=== PATIENT | female | born 1995 | race Caucasian/White ===

== ENCOUNTER 2017-02-22 22:15 | Observation (INO) | payer OTHER ==
[2017-02-22 22:34] VITALS: BP 115/69; PULSE 92
== END 2017-02-22 23:30 | disposition home or self-care (01) ==
LOC: UNDOADMOB 22:15 → OB 22:15 → UNDODISOB 23:30
PROVIDERS: ADMIT Family Medicine; ATTEND Family Medicine
DX: Z34.03 Encounter for supervision of normal first pregnancy, third trimester (principal)
CPT/HCPCS: 80307; G0378

== ENCOUNTER 2017-04-03 21:52 | Observation (INO) | payer OTHER ==
[2017-04-03 23:02] LABS: Bilirubin NEGATIVE (NEGATIVE); Blood NEGATIVE Ery/ul (0-5); COMPLETE URINE MICROSCOPIC? NO; Collection Type CCMS; Glucose NEGATIVE (NEGATIVE); Leukocyte Esterase NEGATIVE (NEGATIVE)
[2017-04-04 01:26] VITALS: BP 116/77; PULSE 94
== END 2017-04-04 00:35 | disposition home or self-care (01) ==
LOC: OB 21:52 → UNDOADMOB 21:52 → OB 22:15 → UNDODISOB 04-04 00:35
PROVIDERS: ADMIT Family Medicine; ATTEND Family Medicine
DX: Z34.83 Encounter for supervision of other normal pregnancy, third trimester (principal)
CPT/HCPCS: 80307; 81002; G0378

== ENCOUNTER 2017-04-07 02:48 | Inpatient (IN) | payer OTHER ==
[2017-04-07] MEDS ORDERED: Phenergan 25 MG INJ IV PRN (08:47)
[2017-04-07] MEDS ORDERED: Ephedrine Sulfate 50 MG/ML IV PRN (08:47)
[2017-04-07] MEDS ORDERED: XYLOCAINE 1% HCL 20 ML MDV IJ PRN (08:47)
[2017-04-07] MEDS ORDERED: Lactated Ringers 1,000 ML IV ONE (08:47)
[2017-04-07] MEDS ORDERED: Zofran 4 MG/2 ML VIAL IV PRN (08:47)
[2017-04-07] MEDS ORDERED: PITOCIN 30 UNITS/ LR 500 ML 500 ML IV SCH (09:00)
[2017-04-07 09:14] LABS: BASOPHIL % 0.1 % (0.0-0.4); Eosinophil % 0.4 % (0.00-5.0); Granulocytes % 79.5 % (36.0-66.0); Lymphocytes % 13.8 % (24.0-44.0); Mean Corpuscular Hemoglobin 30.3 pg (26-32); Mean Platelet Volume 10.2 fl (6-9.5); Monocytes % 6.2 % (0.0-12.0); Platelet Count 244 K/mm3 (150-450); Red Blood Count 3.53 M/mm3 (4.1-5.4); Red Cell Distribution Width 12.8 % (11.5-14.0); White Blood Count 16.8 K/mm3 (4.0-10.5)
[2017-04-07] MEDS: OB EPIDURAL NAROPIN/SUFENTANIL IN NACL EPIDURAL PRN ×2 (10:00→17:25)
[2017-04-07] MEDS ORDERED: Lactated Ringers 1,000 ML IV SCH (10:30)
[2017-04-07] MEDS ORDERED: TYLENOL EXTRA STRENGTH 500 MG PO PRN (19:29)
[2017-04-07] MEDS ORDERED: Dermoplast Spray TP PRN (19:29)
[2017-04-07] MEDS ORDERED: NORCO 5/325 MG PO PRN (19:29)
[2017-04-07] MEDS ORDERED: Restoril 15 MG PO PRN (19:29)
[2017-04-07] MEDS ORDERED: LANSINOH 40 GM TOP PRN (19:29)
[2017-04-07] MEDS ORDERED: Ambien 10 MG PO PRN (19:29)
[2017-04-07] MEDS ORDERED: Rhogam Plus 300 MCG IM ONE (19:29)
[2017-04-07] MEDS: TUCKS TP PRN (20:45)
[2017-04-07] MEDS: MOTRIN 400 MG PO PRN (23:05)
[2017-04-08 05:34] LABS: Mean Cell Volume 90.3 fl (78-100); Mean Corpuscular Hemoglobin 30.3 pg (26-32); Mean Platelet Volume 10.3 fl (6-9.5); Platelet Count 235 K/mm3 (150-450); Red Blood Count 2.67 M/mm3 (4.1-5.4); Red Cell Distribution Width 12.6 % (11.5-14.0); White Blood Count 20.1 K/mm3 (4.0-10.5)
[2017-04-08] MEDS: MOTRIN 400 MG PO PRN ×2 (07:54→20:06)
[2017-04-08] MEDS ORDERED: Adacel Vial IM ONE (09:00)
[2017-04-08] MEDS: FERREX 150 PO SCH (10:43)
[2017-04-08] MEDS: Colace 100 MG PO SCH ×3 (10:43→21:52)
[2017-04-08 11:20] LABS: Total Cells Counted 100
[2017-04-08 11:21] LABS: ANISOCYTOSIS 1+; Platelet Estimate NORMAL (NORMAL); Poikilocytosis 1+
[2017-04-08] MEDS: TUCKS TP PRN (20:13)
[2017-04-09 05:35] LABS: Mean Cell Volume 91.9 fl (78-100); Mean Platelet Volume 9.8 fl (6-9.5); Platelet Count 259 K/mm3 (150-450); Red Blood Count 2.85 M/mm3 (4.1-5.4); White Blood Count 14.8 K/mm3 (4.0-10.5)
[2017-04-09 06:27] LABS: Mean Corpuscular Hemoglobin 30.1 pg (26-32)
[2017-04-09 07:18] LABS: Eosinophil 2 % (0.00-3.0); Platelet Estimate NORMAL (NORMAL); Total Cells Counted 100; Toxic Granulation 1+
[2017-04-09] MEDS: MOTRIN 400 MG PO PRN (09:03)
[2017-04-09] MEDS: Colace 100 MG PO SCH (09:03)
[2017-04-09] MEDS: FERREX 150 PO SCH (09:03)
--- NOTE | 2017-04-09 10:14 | PCM.DS ---
Discharge Summary Date of Admission: 04/07/17 08:41 Admitting Physician: HENRY SANTOS Consults: Consults on Case 04/07/17 08:48 Notify Anesthesia Provider Primary Care Provider: HENRY SANTOS Allergies Allergies No Known Drug Allergies Allergy (Verified 04/03/17 22:30) Hospital Summary - Hospital Course Hospital Course: admitted in spont labor at term, no problems with delivery. , normal course. her daughter and is well bonded. - Vitals & Intake/Output Vital Signs: Vital Signs Temperature 98.1 F 04/09/17 08:00 Pulse Rate 87 04/09/17 08:00 Respiratory Rate 18 04/09/17 08:00 Blood Pressure 111/65 04/09/17 08:00 O2 Sat by Pulse Oximetry Intake & Output: Intake & Output 04/06/17 04/07/17 04/08/17 04/09/17 11:59 11:59 11:59 11:59 Intake Total 5000 Output Total 900 Balance 4100 Weight 77.564 kg - Lab Result Diagrams: 04/09/17 05:32 Lab Results-Last 24 Hrs: Lab Results-Last 24 Hours 04/08/17 04/09/17 Range/Units 05:10 05:32 WBC 14.8 H (4.0-10.5) K/mm3 RBC 2.85 L (4.1-5.4) M/mm3 Hgb 8.6 L (12.0-16.0) gm/dl Hct 26.2 L (35-47) % MCV 91.9 (78-100) fl MCH 30.1 (26-32) pg MCHC 32.8 (32-36) g/dl RDW 13.0 (11.5-14.0) % Plt Count 259 (150-450) K/mm3 MPV 9.8 H (6-9.5) fl Segmented Neutrophils 76 H 73 H (36.0-66.0) % Lymphocytes (Manual) 24 23 L (24-44) % Monocytes (Manual) 2 (0.0-12.0) % Eosinophils (Manual) 2 (0.00-3.0) % Differential Comment ABNORMAL NORMAL Toxic Granulation 1+ Platelet Estimate NORMAL NORMAL (NORMAL) Poikilocytosis 1+ Anisocytosis 1+ Micro Results-Entire Visit: Microbiology 04/07/17 15:38 - Final Urine, Indwelling Catheter NO GROWTH Discharge Exam General Appearance: no apparent distress, alert Respiratory Exam: normal breath sounds, lungs clear, No respiratory distress Cardiovascular Exam: regular rate/rhythm, normal heart sounds Gastrointestinal/Abdomen Exam: soft, No tenderness, No mass Extremity Exam: normal inspection, normal range of motion Final Diagnosis/Problem List - Final Discharge Diagnosis/Problem (1) Vaginal delivery Current Visit: Yes Status: Acute (2) (infant) Current Visit: Yes Status: Acute - Discharge Disposition: Home, Self-Care Condition: Stable Prescriptions: New Iron Polysaccharides Complex [Ferrex 150] 150 mg PO DAILY capsule Continue Vits W-Ca,Fe,FA(<1Mg) [] 1 tab PO DAILY Follow up with: HENRY SANTOS MD [Primary Care Provider] - 1 Week
[2017-04-09 22:59] VITALS: BP 119/72; PULSE 115
== END 2017-04-09 20:15 | disposition home or self-care (01) | DRG 775 ==
LOC: OB 02:48 → OBSVTOIN 08:41 → OB 08:41
PROVIDERS: ADMIT Family Medicine; ATTEND Family Medicine
PROC: 10E0XZZ Delivery of Products of Conception, External Approach (ICD-10-PCS; principal; 2017-04-07)
DX: O80 Encounter for full-term uncomplicated delivery (principal); Z3A.39 39 weeks gestation of pregnancy; Z37.0 Single live birth
CPT/HCPCS: 01967; 36415; 80307; 81002; 85025; 87086; 90715; G0378; J2405; J2590; J2795; A9270-GY

== ENCOUNTER 2024-02-14 22:02 | Observation (INO) | payer OTHER ==
[2024-02-14 22:26] VITALS: BP 125/78; TEMP 98.2; O2SAT 97
[2024-02-14 22:37] LABS: Appearance Cloudy (Clear); Bacteria Rare /HPF (None Seen); Bilirubin Negative (Negative); Blood Negative (Negative); Epithelial Cells Moderate /HPF (None Seen); Glucose, Urine Negative (Negative); Hyaline Casts NONE SEEN /LPF (0-2); Ketones Negative (Negative); Leukocyte Esterase Negative (Negative); Nitrite Negative (Negative); Ph 6.5 (4.6-8.0); Protein,Urine Dip Trace (Negative); RBC 0-2 /HPF (0-5)
[2024-02-14 22:40] LABS: AMNISURE TEST RESULTS NEGATIVE (NEGATIVE)
[2024-02-14 22:41] LABS: ADD URINE CULTURE? YES (NO)
[2024-02-14 22:42] VITALS: PULSE 108; RESP 17
[2024-02-14 22:49] LABS: Amphetamine,Urine NEGATIVE (NEGATIVE); Barbiturate,Urine NEGATIVE (NEGATIVE); Benzodiazepine,Urine NEGATIVE (NEGATIVE); Cocaine,Urine NEGATIVE (NEGATIVE); Methadone,Urine NEGATIVE (NEGATIVE); Opiate,Urine NEGATIVE (NEGATIVE); PCP,Urine NEGATIVE (NEGATIVE); THC,Urine NEGATIVE (NEGATIVE)
== END 2024-02-14 23:26 | disposition home or self-care (01) ==
LOC: OB 22:02
PROVIDERS: ADMIT Obstetrics & Gynecology; ATTEND Obstetrics & Gynecology
DX: Z34.83 Encounter for supervision of other normal pregnancy, third trimester (principal); Z3A.36 36 weeks gestation of pregnancy
CPT/HCPCS: 80307; 81001; 84112; 87086; G0378; G0379

== ENCOUNTER 2024-02-29 14:13 | Observation (INO) | payer OTHER ==
[2024-02-29 14:52] VITALS: BP 122/68; PULSE 123; RESP 18; TEMP 97.6
[2024-02-29 15:06] LABS: Appearance Clear (Clear); Bacteria None Seen /HPF (None Seen); Bilirubin Negative (Negative); Blood Negative (Negative); Epithelial Cells Few /HPF (None Seen); Glucose, Urine Negative (Negative); Hyaline Casts NONE SEEN /LPF (0-2); Ketones Negative (Negative); Leukocyte Esterase Trace (Negative); Nitrite Negative (Negative); Ph 6.5 (4.6-8.0); Protein,Urine Dip Trace (Negative); RBC 0-2 /HPF (0-5); Specific Gravity 1.015 (1.005-1.030)
[2024-02-29 15:09] LABS: ADD URINE CULTURE? NO (NO)
[2024-02-29 15:17] LABS: Amphetamine,Urine NEGATIVE (NEGATIVE); Barbiturate,Urine NEGATIVE (NEGATIVE); Benzodiazepine,Urine NEGATIVE (NEGATIVE); Cocaine,Urine NEGATIVE (NEGATIVE); Methadone,Urine NEGATIVE (NEGATIVE); Opiate,Urine NEGATIVE (NEGATIVE); PCP,Urine NEGATIVE (NEGATIVE); THC,Urine NEGATIVE (NEGATIVE)
== END 2024-02-29 16:10 | disposition home or self-care (01) ==
LOC: OB 14:13
PROVIDERS: ADMIT Family Medicine; ATTEND Family Medicine
DX: Z34.83 Encounter for supervision of other normal pregnancy, third trimester (principal); Z3A.39 39 weeks gestation of pregnancy
CPT/HCPCS: 80307; 81001; G0378; G0379

== ENCOUNTER 2024-03-04 04:29 | Inpatient (IN) | payer OTHER ==
[2024-03-04 05:06] LABS: Absolute Neutrophil Ct (ANC) 5.63 x10^3/uL (1.56-6.13); BASOPHIL % 0.1 % (0.1-1.2); Basophil (Absolute #) 0.01 x10^3/uL (0.01-0.08); Eosinophil % 1.4 % (0.7-5.8); Eosinophil (Absolute #) 0.13 x10^3/uL (0.04-0.36); Hematocrit 33.7 % (34.1-44.9); Hemoglobin 11.6 g/dL (11.2-15.7); IMMATURE GRAN # 0.06 x10^3u/L (0.001-0.031); IMMATURE GRAN % 0.7 % (0.001-0.429); Lymphocyte (Absolute #) 2.71 x10^3/uL (1.18-3.74); Lymphocytes % 29.7 % (19.3-51.7); Mean Corpuscular Hemoglobin 29.6 pg (25.6-32.2); Mean Corpuscular Hgb Concent. 34.4 g/dL (32.2-35.5); Mean Platelet Volume 10.2 fL (9.4-12.3); Monocyte (Absolute #) 0.59 x10^3/uL (0.24-0.86); Monocytes % 6.5 % (4.7-12.5); Neutrophil % 61.6 % (34.0-71.1); Platelet Count 241 x10^3/uL (182-369); Red Blood Count 3.92 x10^6/uL (3.93-5.22); White Blood Count 9.1 x10^3/uL (3.98-10.04)
[2024-03-04] MEDS ORDERED: Ephedrine Sulfate 50 MG/ML IV PRN (05:09)
[2024-03-04] MEDS: Lactated Ringers 1,000 ML IV ONE (05:10)
[2024-03-04 05:13] LABS: Appearance Clear (Clear); Bacteria None Seen /HPF (None Seen); Bilirubin Negative (Negative); Blood Negative (Negative); Epithelial Cells Rare /HPF (None Seen); Glucose, Urine Negative (Negative); Hyaline Casts NONE SEEN /LPF (0-2); Ketones Negative (Negative); Leukocyte Esterase Negative (Negative); Nitrite Negative (Negative); Protein,Urine Dip Negative (Negative); RBC 0-2 /HPF (0-5); Specific Gravity 1.015 (1.005-1.030); Urobilinogen 0.2 mg/dL (0.2)
[2024-03-04 05:16] LABS: ADD URINE CULTURE? NO (NO)
[2024-03-04 05:23] LABS: Amphetamine,Urine NEGATIVE (NEGATIVE); Barbiturate,Urine NEGATIVE (NEGATIVE); Benzodiazepine,Urine NEGATIVE (NEGATIVE); Cocaine,Urine NEGATIVE (NEGATIVE); Methadone,Urine NEGATIVE (NEGATIVE); Opiate,Urine NEGATIVE (NEGATIVE); PCP,Urine NEGATIVE (NEGATIVE); THC,Urine NEGATIVE (NEGATIVE)
[2024-03-04] MEDS ORDERED: Zofran 4 MG/2 ML VIAL IV PRN (05:30)
[2024-03-04] MEDS ORDERED: XYLOCAINE 1% HCL 20 ML MDV IJ PRN (05:30)
[2024-03-04] MEDS ORDERED: BRETHINE 1 MG/ML SQ PRN (05:30)
[2024-03-04 05:42] LABS: ABO TYPING B; Antibody Screen NEGATIVE (NEGATIVE); RH TYPING NEGATIVE
[2024-03-04] MEDS: Lactated Ringers 1,000 ML IV SCH (05:53)
[2024-03-04] MEDS: PITOCIN 30 UNITS/ LR 500 ML 30 UNITS/500 ML PLAST..BAG IV SCH (06:28)
[2024-03-04] MEDS: FENTANYL 2 MCG-BUPIV 0.125%-NS 250 ML Epidur 250 ML EPIDURAL SCH (08:40)
[2024-03-04] MEDS: TYLENOL EXTRA STRENGTH 500 MG PO PRN ×2 (10:49→17:08)
[2024-03-04] MEDS ORDERED: Anucort-HC SUPPOSITORY PR PRN (10:53)
[2024-03-04] MEDS ORDERED: Dermoplast Spray TP PRN (10:53)
[2024-03-04] MEDS ORDERED: CORTISONE 1% CREAM TP PRN (10:53)
[2024-03-04] MEDS ORDERED: Mylicon 80MG PO PRN (10:53)
[2024-03-04] MEDS ORDERED: Dulcolax 10 MG SUPP PR PRN (10:53)
[2024-03-04] MEDS: TUCKS TP PRN (12:48)
[2024-03-04] MEDS: MOTRIN 400 MG PO PRN (18:38)
[2024-03-04] MEDS: Docusate Sodium 100 MG PO SCH (22:00)
[2024-03-05] MEDS: PITOCIN 30 UNITS/ LR 500 ML 30 UNITS/500 ML PLAST..BAG IV SCH (01:01)
[2024-03-05 05:47] LABS: BASOPHIL % 0.4 % (0.1-1.2); Basophil (Absolute #) 0.04 x10^3/uL (0.01-0.08); Eosinophil % 1.7 % (0.7-5.8); Eosinophil (Absolute #) 0.19 x10^3/uL (0.04-0.36); Hematocrit 30.2 % (34.1-44.9); Hemoglobin 10.2 g/dL (11.2-15.7); IMMATURE GRAN # 0.05 x10^3u/L (0.001-0.031); IMMATURE GRAN % 0.4 % (0.001-0.429); Lymphocytes % 34.2 % (19.3-51.7); Mean Cell Volume 88.6 fL (79.4-94.8); Mean Corpuscular Hemoglobin 29.9 pg (25.6-32.2); Mean Corpuscular Hgb Concent. 33.8 g/dL (32.2-35.5); Mean Platelet Volume 9.8 fL (9.4-12.3); Monocyte (Absolute #) 0.74 x10^3/uL (0.24-0.86); Monocytes % 6.7 % (4.7-12.5); Neutrophil % 56.6 % (34.0-71.1); Platelet Count 195 x10^3/uL (182-369); Red Blood Count 3.41 x10^6/uL (3.93-5.22); Red Cell Distribution Width 13.2 % (11.7-14.4); White Blood Count 11.1 x10^3/uL (3.98-10.04)
[2024-03-05] MEDS: Rhogam Plus 300 MCG IM ONE (09:00)
[2024-03-05] MEDS: FERREX 150 PO SCH (09:02)
[2024-03-05] MEDS: Adacel Vial IM ONE (09:10)
[2024-03-05 09:46] VITALS: RESP 16
[2024-03-05 11:13] LABS: RPR Non Reactive (Non Reactive)
[2024-03-06 11:11] VITALS: TEMP 97.8
--- NOTE | 2024-03-06 14:19 | PCM.DS ---
Discharge Summary Date of Admission: 03/04/24 08:06 Admitting Physician: HENRY SANTOS Consults: Consults on Case 03/04/24 05:09 Notify Anesthesia Provider PRN 03/04/24 11:43 Navigation ONCE Primary Care Provider: HENRY SANTOS Allergies Allergies No Known Drug Allergies Allergy (Verified 03/04/24 04:34) Hospital Summary - Hospital Course Hospital Course: patient had vaginal delivery with no complications. bottle feeing, routine care, mild lochia and pain controlled with tylenol and ibuprofen. - Vitals & Intake/Output Vital Signs: Vital Signs Temperature 97.8 F 03/06/24 08:00 Pulse Rate 79 03/06/24 08:00 Respiratory Rate 16 03/06/24 08:00 Blood Pressure 108/68 03/06/24 08:00 O2 Sat by Pulse Oximetry 98 03/06/24 08:00 Intake & Output: Intake & Output 03/04/24 03/05/24 03/06/24 03/07/24 11:59 11:59 11:59 11:59 Intake Total 1350 Balance 1350 Weight 94.347 kg - Lab Result Diagrams: 03/05/24 05:40 Discharge Exam General Appearance: no apparent distress Neurologic Exam: alert, cooperative Respiratory Exam: normal breath sounds, lungs clear, No respiratory distress Cardiovascular Exam: regular rate/rhythm, normal heart sounds Gastrointestinal/Abdomen Exam: soft, No tenderness, No mass Extremity Exam: normal inspection, normal range of motion Final Diagnosis/Problem List - Final Discharge Diagnosis/Problem (1) Vaginal delivery Current Visit: No Status: Acute Code(s): O80 - ENCOUNTER FOR FULL-TERM UNCOMPLICATED DELIVERY - Discharge Disposition: Home, Self-Care Condition: Stable Prescriptions: Continue Vits W-Ca,Fe,FA(<1Mg) [] 1 tab PO DAILY Iron Polysaccharides Complex [Ferrex 150] 150 mg PO DAILY capsule Omeprazole 20 mg PO DAILY PRN PRN Reason: heartburn Discontinued Docusate Sodium 100 mg [Docusate Sodium 100 MG] 100 mg PO DAILY PRN PRN Reason: Constipation Valacyclovir HCl [Valacyclovir] 500 mg PO BID Additional Instructions: PLEASE RETURN TO THE OB UNIT AT THE HOSPITAL ON FRIDAY MARCH 08, 2024 FOR A POST FOLLOW UP FOR ISAIAS AND MILO. PLEASE CALL DR. SANTOS' OFFICE TO SET UP A 6 WEEK FOLLOW UP APPOINTMENT FOR YOURSELF. IF YOU HAVE ANY CONCERNS, FEEL FREE TO CALL THE OB UNIT. IN CASE OF AN EMERGENCY, RETURN TO YOUR NEAREST ER. Follow up with: HENRY SANTOS MD [Primary Care Provider] - 6 weeks (6 WEEKS) Forms: OB Discharge Instructions
[2024-03-06 15:11] VITALS: BP 116/75; PULSE 88; O2SAT 96
--- NOTE | 2024-03-06 16:26 | XRAY ---
CLINICAL HISTORY: C/O HEADACHE W HX PRIOR HEAD TRAUMA COMPARISON: None. TECHNIQUE: CT scan of the brain without contrast administration. Images were acquired in axial cuts with coronal and sagittal reformation. One of the following dose reduction techniques were utilized for this exam: Automated exposure control, adjustment of the mA and/or kV according to patient size, and use of iterative reconstruction. FINDINGS: No area of abnormally low or high attenuation value seen. No intracranial space-occupying lesion seen. No CT evidence of acute infarction. Normal size, position and configuration of the ventricular system. No shift of the midline structures. No evidence of intra or extra axial recent hematoma. Normal appearance of the posterior fossa structures including the brainstem and cerebellum. Right compartment sphenoid sinusitis. Bone window settings showed no evidence of fractures or destructive lesions. IMPRESSION: 1. Normal CT scan of the brain. 2. No acute intracranial abnormality. 3. Sphenoid sinusitis. Electronically Signed by: Mikki Lowe MD. (03/06/2024 16:22:24 EDT)
== END 2024-03-06 17:45 | disposition home or self-care (01) | DRG 807 ==
LOC: OB 04:29 → OBSVTOIN 08:06
PROVIDERS: ADMIT Family Medicine; ATTEND Family Medicine
PROC: 10E0XZZ Delivery of Products of Conception, External Approach (ICD-10-PCS; principal; 2024-03-04)
DX: O80 Encounter for full-term uncomplicated delivery (principal); Z37.0 Single live birth; Z3A.39 39 weeks gestation of pregnancy; Z86.19 Personal history of other infectious and parasitic diseases
CPT/HCPCS: 36415; 70450; 80307; 81001; 81003; 85025; 85461; 86592; 86850; 86900; 86901; 90715; 96372; J2590; J2790; A9270-GY